=== PATIENT | female | born 1985 | race Hispanic/Latino ===

== ENCOUNTER 2016-11-23 05:05 | Inpatient (IN) | payer MEDICAID ==
[~2016-11-23] VITALS: Ht 160 cm; Wt 120.7 kg
[2016-11-23] MEDS ORDERED: PREN1TAB87 PO (05:16)
[2016-11-23] MEDS ORDERED: ACYC400T2 PO (05:18)
[2016-11-23] MEDS ORDERED: Oxytocin 10 Unit/mL Inj IV ONE ×2 (05:33→05:46)
[2016-11-23] MEDS ORDERED: Carboprost 250 mCg/mL Inj IM PRN ×2 (06:00→10:15)
[2016-11-23] MEDS ORDERED: Hemorrhage Kit, Post Partum XX ONE ×2 (06:00→10:15)
[2016-11-23] MEDS ORDERED: Lactated Ringer's 1,000 ML IV SCH ×2 (06:00→07:17)
[2016-11-23] MEDS ORDERED: Methylergonovine 0.2 mg/mL Inj IM PRN ×2 (06:00→10:15)
[2016-11-23] MEDS ORDERED: CeFAZolin Inj 2 GM in IV Premix 1 EACH IV SCH (06:00)
[2016-11-23] MEDS ORDERED: Sodium Citrate-Citric Acid 30 mL Solution PO SCH (06:00)
[2016-11-23 06:29] LABS: Mean Corpuscular Hemoglobin 28.2 pg (27.0-35.0); Mean Corpuscular Volume 89.2 fL (81-100)
[2016-11-23] MEDS ORDERED: Sodium Citrate-Citric Acid 15 mL Solution ONE (07:01)
[2016-11-23] MEDS ORDERED: Lactated Ringer's 500 ML IV PRN (07:17)
--- NOTE | 2016-11-23 07:17 | PCM.HPANE ---
Patient Data Surgeon Admitting Provider:David Perdue MD Attending Provider:David Perdue MD Primary Care Physician:Lurdes Louis MD Other Provider:Wil Ray Anesthesia Reason for Visit Term Repeat C/S TERM REPEAT C/S Ht/WT & BMI Body Mass Index Allergies Coded Allergies: No Known Allergies (Unverified Allergy, Unknown, 06/12/15) latex (Verified Allergy, Unknown, rash, 11/23/16) Diabetes History Hx Diabetes?: No Medications Reported Medications Acyclovir 400 Mg Tablet Mg PO BID Ref 0 11/23/16 Vit W-Ca,Fe,FA(<1 mg) ( Vitamins)1 Each Tablet1 Each PO DAILY 11/23/16 History Cardiovascular History: Denies:: Congestive Heart Failure Hypertension Respiratory History: Denies:: Tuberculosis Hx Surgeries?: No Hx Diabetes: No Hx Alcohol Use: Yes (occasional)Hx Substance Use: Yes (marijuana occasional) Smoking Status: Never Smoker Have You Smoked inLast 12 mo: No Stop/Bang Risk Assessment Category Category 1A: Patient has history of documented sleep apnea, and HAS NOT received any narcotic, sedative or anesthesia administration during this stay. Category 1B: Patient has history of documented sleep apnea, and HAS received any narcotic , sedative or anesthesia administration during this stay Category 2: Patient has SUSPECTED Obstructive Sleep Apnea, and HAS received any narcotic , sedative or anesthesia administration during this stay. Category 3: Patient has SUSPECTED Obstructive Sleep Apnea and HAS NOT received narcotic, sedative or anesthesia administration during this stay. Category 4: Outpatient in Procedural Areas with known sleep apnea or who screen positive for High Risk via the STOP/BANG questionnaire. Meds/Labs/Diagnostics Admission Meds Current Medications Lactated Ringer's (Lr) 1,000 ml @ 125 mls/hr Q8H IV Last administered on t 06:17; Start 11/23/16 at 06:00; Stop 11/23/16 at 13:59 Labs Test 11/23/16 05:16 11/23/16 06:10 Urine Opiates Screen Negative Urine Methadone Screen Negative Urine Barbiturates Screen Negative Urine Amphetamines Screen Negative Urine Benzodiazepines Screen Negative Urine Cocaine Metabolite Screen Negative Urine Cannabinoids Screen Negative White Blood Count 10.0th/mm3 (3.8-10.1) Red Blood Count 3.72mil/mm3 (3.90-5.20) Hemoglobin 10.5g/dL (12.0-15.6) Hematocrit 33.2% (35.0-46.0) Mean Corpuscular Volume 89.2fL (81-100) Mean Corpuscular Hemoglobin 28.2pg (27.0-35.0) Mean Corpuscular Hemoglobin Concent 31.6% (32.0-37.0) Red Cell Distribution Width 15.0% (12.3-15.4) Platelet Count 278bil/L (150-400) Plan Impression Patient chart reviewed, patient interviewed and anesthestic plan with risks, benefits, and alternatives discussed, and informed consent obtained. Pj Weaver MD Nov 23, 2016 07:17
--- NOTE | 2016-11-23 07:17 | PCM.ANEPRE ---
Anesthesia Pre-Op Review Reason for Review: BMI 46 Anesthesia Recommendations: Proceed with Procedure Additional Comments Anesthesia Pre-Op Review Reason for Review: BMI 46 Anesthesia Recommendations: Proceed with Procedure Additional Comments 31 yo urdu speaking for repeat c/s on 11/23/16, mon. with BMI 46. Has had some htn, otherwise smooth . Delivered by c/s after long labor in 2004 with initial epidural and successful spinal for c/s. Recovered well. latex allergy. Denies cardiac or pulmonary problems. no illicit drugs or alcohol. pt of tania kolb. Good airway, MP1, and can feel midline of back. Discussed sab for elective c/s and she is comfortable with this. All questions answered. Will check labs before surgery and good to proceed. Chart Reviewed by: Pj Weaver MD Chart Reviewed by: Pj Dietrich MD, MD Nov 23, 2016 07:17
[2016-11-23] MEDS ORDERED: HYDROmorphone 1 mg/mL Inj IVPUSH PRN (07:20)
[2016-11-23] MEDS ORDERED: EPHEDrine Sulfate 50 mg/mL Inj IVPUSH PRN (07:20)
[2016-11-23] MEDS ORDERED: Dexamethasone 4 mg/mL Inj IVPUSH PRN (07:20)
[2016-11-23] MEDS ORDERED: fentaNYL-PF 50 mCg/mL 2 mL Inj IVPUSH PRN (07:20)
[2016-11-23] MEDS ORDERED: Phenylephrine 10,000 mCg/mL Inj IVPUSH PRN (07:20)
[2016-11-23] MEDS ORDERED: MetoCLOpramide 5 mg/mL 2 mL Inj IVPUSH PRN (07:20)
[2016-11-23] MEDS ORDERED: Ondansetron 2 mg/mL 2 mL Inj IVPUSH PRN (07:20)
[2016-11-23] MEDS ORDERED: Morphine PF 1 mg/mL 10 mL Inj ONE (08:58)
[2016-11-23] MEDS ORDERED: fentaNYL-PF 50 mCg/mL 2 mL Inj ONE (08:58)
[2016-11-23] MEDS ORDERED: Phenylephrine/NS 100 mCg/mL 10 mL Syringe IVPUSH ONE (08:59)
[2016-11-23] MEDS ORDERED: Ondansetron 2 mg/mL 2 mL Inj ONE (08:59)
[2016-11-23] MEDS: Oxytocin 10 Unit/mL Inj IM PRN ×2 (10:06→10:07)
[2016-11-23] MEDS ORDERED: Oxytocin 10 Unit/mL Inj IM PRN (10:15)
[2016-11-23] MEDS ORDERED: Oxytocin 30 Units/500 mL LR 30 UNITS in IV Premix 1 EACH IV PRN (10:15)
[2016-11-23] MEDS ORDERED: Sodium Chloride LOK Flush 10 mL Syringe IVFLUSH PRN (10:15)
[2016-11-23] MEDS ORDERED: hydrOXYzine Pamoate 25 mg Capsule PO PRN (10:15)
[2016-11-23] MEDS ORDERED: LANOlin HPA 7 Gm Ointment TOPICAL PRN (10:15)
--- NOTE | 2016-11-23 10:45 | OP ---
[address] [address] OPERATIVE REPORT PATIENT: NEREYDA REDD : 1985 MR#: [id number] ADMIT: 11/23/2016 JOB ID: [id number] DATE OF SURGERY: 11/23/2016 PROCEDURE: Repeat low transverse delivery. PREOPERATIVE DIAGNOSIS(ES): 1. Intrauterine at 39 weeks. 2. History of one prior delivery. POSTOPERATIVE DIAGNOSIS(ES): 1. Intrauterine at 39 weeks. 2. History of one prior delivery. SURGEON: David Perdue MD MANAGER AGRICULTURE: Lurdes Louis MD ANESTHESIA: Pj Weaver MD, spinal. ESTIMATED BLOOD LOSS: 700 mL. ESTIMATED URINE OUTPUT: 300 mL. FLUID: 1 L of Ringer lactate. COMPLICATIONS: None. PROCEDURE: The patient was brought to the operating room, where she underwent spinal anesthesia without difficulty. The patient was placed in a dorsal supine position with a leftward tilt. She was prepped and draped in the usual surgical fashion. Time-out was performed verifying correct patient, correct procedure. She received preoperative antibiotics. The surgery was challenging because of the patient's morbid obesity, prior , adhesions between the omentum and anterior abdominal wall. Additional assistance was necessary for good exposure, retraction, help with lyses of adhesions and delivery of the . Pfannenstiel skin incision was made with a scalpel and carried down to the underlying layer of rectus muscle fascia using Bovie. The rectus muscle fascia was incised in the midline with the Bovie and the incision was then laterally extended. The lower aspect of the incision was grasped with two José Miguel clamps and the rectus muscle fascia was from the underlying rectus muscle using Acuña scissors. In a similar fashion, the upper aspect of the incision was grasped with two José Miguel clamps, and rectus muscle fascia was from the underlying rectus muscle using the scalpel, Acuña scissors and moist laparotomy sponge. The rectus muscles were in the midline. The patient had some adhesions between the anterior abdominal wall and omentum that were lysed using Bovie. The peritoneum was identified, tented up with two Bekah clamps, and entered sharply with the Metzenbaum scissors. The peritoneal incision was then laterally extended. The lysis of adhesions was provided down toward the lower uterine segment. The bladder blade was introduced. Using scalpel, lower segment transverse uterine incision was made and extended laterally with the bandage scissors. The infant was identified being in a cephalic presentation. The bladder blade was removed and male was atraumatically delivered with scores 9 at one minute and 9 at five minutes. The mouth and nostrils were suctioned. The delayed cord clamping was done allowing 60 seconds. The cord was clamped and cut and the was handed off to the waiting manager ct. The cord blood was sent. The placenta was removed. The uterus was exteriorized and cleared from all the blood clots and debris using a dry laparotomy sponge. The uterine incision was repaired with two layers of 0 Monocryl. The pelvis was irrigated with warm normal saline and the uterus was replaced. The peritoneum was reapproximated using 2-0 Vicryl suture. Interrupted sutures were placed on the rectus muscles for reapproximation as well using 2-0 Vicryl. The fascia was closed with 0-Vicryl. Subcuticular tissue was reapproximated with four interrupted 3-0 Vicryl sutures. The skin was reapproximated with sofia. Dermabond glue was applied. Hemostatic dressing was applied. The patient tolerated the procedure well and was transferred to the recovery room in a stable condition.
[2016-11-23] MEDS: Acetaminophen IV 1,000 MG in IV Premix 1 EACH IV PRN ×2 (11:03→20:04)
[2016-11-23] MEDS: Lactated Ringer's 1,000 ML IV SCH ×2 (11:03→22:10)
[2016-11-23] MEDS: oxyCODONE-Acetamin 5-325 mg Tablet PO PRN ×2 (15:32→22:10)
[2016-11-24] MEDS: oxyCODONE-Acetamin 5-325 mg Tablet PO PRN ×5 (04:27→22:16)
[2016-11-24 06:41] LABS: Mean Corpuscular Hemoglobin 28.2 pg (27.0-35.0)
--- NOTE | 2016-11-24 09:47 | PCM.PNOBPP ---
Subjective Date of Service Nov 24, 2016 Post : Repeat Ceserean Delivery Subjective 31 female G3 P(2now) s/p repeat cesarian delivery. Mother recovering well. Ambulating independently, voiding urine without difficulty. Pain is well controlled with oral pain meds. Wound site is mildly tender. No fever/chills, VASQUEZ , N/V, CP, SOB. Lochia: Normal Pain Management: PO pain meds Gastrointestinal: Good Appetite, No N/V Labs Antibody screen - negative, PAP test - negative, Varicella - immune, Rubella - immune, RPR - non reactive, HBsAg - negative, HIV - negative, Chlamydia/ Gonorrhea - negative, GBS - negative Group B Strep Results: Negative Rubella: Immune Blood Type: A RH Type: Positive Labs Laboratory Tests 11/24/16 06:10: White Blood Count 10.4, Red Blood Count 3.12, Hemoglobin 8.8, Hematocrit 28.4, Mean Corpuscular Volume 91.0, Mean Corpuscular Hemoglobin 28.2, Mean Corpuscular Hemoglobin Concent 31.0, Red Cell Distribution Width 14.9, Platelet Count 224 Exam Vital Signs Vital Signs BP 141/89, HR 104, RR 16, temp 36.5, Vital Signs: VS reviewed, stable Exam Abdomen: Uterus is (difficult to palpate fundal height secondary to body habititus. ), Abdomen soft, Abdomen appropriately tender Extremities: No edema Lungs: Clear to Auscultation, Normal Air Movement Heart: Exam Unremarkable, Regular Rate/Rhythm General: Alert, Oriented X3, Cooperative OB Post Assessment/Plan Assessment 31 female s/p repeat cesarian delivery without complication though surgery was reported to be difficult secondary to body habitus. Mother is recovering well. Problems: (1) delivery delivered Plan: Continue supportive care, anticipate discharge tomorrow Status: Resolved ICD Code: O82 (2) Previous , delivered, current hospitalization Plan: Continue supportive care, anticipate discharge home tomorrow. Status: Resolved ICD Code: O34.21 Pain Evaluation: Adequate Pain Control Attending Statement Patient was seen and examined. She is doing well this AM, POD#1 s/p RLTCS. May catheter was removed and she is ambulating and voiding without difficulty. Lochia is minimal. Incision is clean/dry/intact and pain is well controlled. She is eating breakfast and denies nausea or vomiting. No flatus yet. Blood pressures reviewed and within normal limits with mild elevations not requiring intervention. She does have anemia noted on CBC and iron and colace are ordered. Continue routine postoperative care, plan to remove dressing 24 hr s/p delivery. Anticipate discharge home on POD#2 ELVIE FRIED DO Nov 24, 2016 07:45 Chaparrita Salazar MD Nov 25, 2016 13:24
[2016-11-24] MEDS: Lactated Ringer's 1,000 ML IV SCH ×2 (10:11→16:44)
[2016-11-24] MEDS: Ascorbic Acid 500 mg Tablet PO SCH (19:53)
[2016-11-25] MEDS: oxyCODONE-Acetamin 5-325 mg Tablet PO PRN ×3 (02:20→12:32)
[2016-11-25] MEDS ORDERED: FERR-74 PO (07:00)
[2016-11-25] MEDS ORDERED: Ascorbic Acid PO (07:00)
[2016-11-25] MEDS ORDERED: IBUP800T28 PO (07:00)
[2016-11-25] MEDS ORDERED: OXYC5TAB72 PO (07:00)
[2016-11-25] MEDS ORDERED: DOCU-41 PO (07:00)
[2016-11-25] MEDS ORDERED: OXYC1TAB24 PO (07:34)
[2016-11-25 08:00] LABS: BASOPHILS % (AUTO) 0.2 % (0-3); EOSINOPHILS % (AUTO) 1.5 % (0-5); MONOCYTES % (AUTO) 6.6 % (4-12); Mean Corpuscular Hemoglobin 29.2 pg (27.0-35.0); Mean Corpuscular Volume 90.5 fL (81-100); Platelet Count 244 bil/L (150-400)
[2016-11-25] MEDS: Ascorbic Acid 500 mg Tablet PO SCH (08:23)
[2016-11-25] MEDS: Lactated Ringer's 1,000 ML IV SCH (08:49)
--- NOTE | 2016-11-25 08:56 | PCM.PNOBPP ---
Subjective Date of Service Nov 25, 2016 Post : Repeat Ceserean Delivery Subjective 31 female G3 P(2now) s/p repeat cesarian delivery. Mother recovering well. Ambulating independently, showering in room, voiding urine without difficulty. Pain is well controlled with oral pain meds. Wound site is mildly tender. No fever/chills, VASQUEZ, N/V, CP, SOB. Lochia: Normal Pain Management: PO pain meds Gastrointestinal: Good Appetite, No N/V Postop Activity: Ambulating Independently Group B Strep Results: Negative Rubella: Immune Blood Type: A RH Type: Positive Labs Laboratory Tests 11/24/16 06:10: White Blood Count 10.4, Red Blood Count 3.12, Hemoglobin 8.8, Hematocrit 28.4, Mean Corpuscular Volume 91.0, Mean Corpuscular Hemoglobin 28.2, Mean Corpuscular Hemoglobin Concent 31.0, Red Cell Distribution Width 14.9, Platelet Count 224 Exam Vital Signs Vital Signs BP 122/63, HR 94, RR 16, temp 36.7 Vital Signs: VS reviewed, stable Exam Abdomen: Uterus is (1 finger bradth below umbilicus. Difficult to palpate secondary to body habitus), Abdomen appropriately tender (Wound site shows no erythema, swelling. Bandages intact.) Extremities: No edema Lungs: Clear to Auscultation, Normal Air Movement Heart: Exam Unremarkable, Regular Rate/Rhythm General: Alert, Oriented X3, Cooperative, No Acute Distress OB Post Assessment/Plan Problems: (1) delivery delivered Plan: Continue supportive care, discharge to [facility] status today Status: Resolved ICD Code: O82 (2) Previous , delivered, current hospitalization Plan: Continue supportive care, discharge home today. Status: Resolved ICD Code: O34.21 Pain Evaluation: Adequate Pain Control Attending Statement The patient was seen and examined together with Dr. Oakes on 11/25/2016 and I agree with the history, exam and plan as outlined in the note above. Incision is CDI and sofia in place. Desires discharge. Discharge instructions reviewed in detail. Will go to clinic for staple removal next Monday. Will see Dr. Perdue for postop in 2 weeks. Is unsure what she would like to do for contraception. Briefly counseled. Plans to discuss further with Dr. Louis. / MD FARIHA Cormier GILES A DO Nov 25, 2016 06:19 Mono Wang MD Nov 25, 2016 10:48
--- NOTE | 2016-11-25 09:00 | PCM.DC.OB ---
Obstetrical Discharge Summary Date of Service Nov 25, 2016 Date of hospital admission Nov 23, 2016 at 05:05 Date of Discharge: Nov 25, 2016 Providers Admitting Physician: David Perdue MD Primary Care Physician: Lurdes Louis MD Attending Physician: David Perdue MD Problems: (1) delivery delivered Plan: Pt tolerated procedure well, recovering well. Discharge to [facility] status in stable condition Status: Resolved ICD Code: O82 (2) Previous , delivered, current hospitalization Plan: Resolved, pt tolerated procedure well with no complications Status: Resolved ICD Code: O34.21 Brief History and Physical: 31 year old female presented to the [facility] on 11/23/2016 for scheduled cesarian. Pt has a pertinent past medical history of prior cesarian and BMI of 47. has been complicated by late entry into care. Pt is GBS negative, Blood type is A positive all other labs are unremarkable. BP 141/89, HR 104, RR 16, temp 36.5, Abdomen: Uterus is (difficult to palpate fundal height secondary to body habitus. Abdomen soft, Abdomen appropriately tender. Wound site shows no erythema, swelling, discharge of fluid. Bandages intact. Extremities: No edema Lungs: Clear to Auscultation, Normal Air Movement Heart: Exam Unremarkable, Regular Rate/Rhythm General: Alert, Oriented X3, Cooperative Hospital Course: 31 female G3 P(2now) arrived to [facility] at scheduled time for elective cesarian. Pt was given anathesia without difficulty. Surgery was reported to be challenging secondary to body habitus and adhesions from prior cesarian. A healthy male was delivered weighing 3547 grams. Mother and baby both tolerated the surgery well. Mother recovered well in hospital room. Able to ambulate independently, void urine without difficulty with sufficient pain management with oral pain medications. Pt did have some elevated blood pressure readings during her stay, these were mild and a symptomatic. ([Ascorbic Acid]) 500 MG TABLET 500 MG PO BID Prescribed by: ELVIE OAKES DO Acyclovir (Acyclovir) 400 Mg Tablet MG PO BID (Reported) Docusate Sodium (Colace) 100 Mg Capsule 100 MG PO BID PRN PRN For Constipation Prescribed by: ELVIE OAKES DO Ferrous Sulfate (Feosol) 325 Mg Tablet 325 MG PO BIDWM Prescribed by: ELVIE OAKES DO Ibuprofen (Ibuprofen) 800 Mg Tablet 800 MG PO Q6H PRN PRN For Pain Prescribed by: ELVIE OAKES DO Vit W-Ca,Fe,FA(<1 mg) ( Vitamins) 1 Each Tablet 1 EACH PO DAILY (Reported) Last Taken: Unknown Dose on 10/23/16 oxyCODONE-Acetaminophen 5-325 mg ( oxyCODONE-Acetaminophen 5-325 mg) 1 Each Tablet 1-2 TAB PO Q4H PRN PRN For Pain Prescribed by: ELVIE OAKES DO Disposition Discharge to [facility] in stable condition. Discharge Diet: Low fat, Low Sodium, Heart Healthy Discharge Activity-General: Pelvic Rest for 6 weeks, Try not to overdue, Be up and about, Balance rest and activity, Activity as pain allows, Activity as energy allows Patient instructions Continue to take your vitamin Please take the iron and vitamin c together Do not take more pain medication (Percocet) than is necessary -- less is better. Percocet pills have Tylenol (acetaminophen) in them at 325mg per pill. Do not take Tylenol in addition to your pain medication but should take one or the other. Both iron and Percocet can give you constipation so you have also been given a prescription for docusate to keep you regular. Be sure to follow up for staple removal on Monday in the [facility] or at Dr. Louis's office (for a nurse visit and staple removal), and in [address] Perdue and then again in 6 weeks at [facility]. Pelvic rest for 6 weeks (nothing per vagina including intercourse, tampons) If you have a fever greater than 100.4, please call [facility]. There is always someone research professional to talk to. If you have an increase in bleeding, call [facility]. If you have a lot of bleeding suddenly, especially if you have symptoms of dizziness & weakness with it, get emergency help. When you see [facility] in two weeks, you will be informed of the results of all the labs. If you start experiencing extreme depression, especially if you feel that you are a danger to yourself or your family, seek emergency help. You have been through a lot -- BE SURE TO TAKE CARE OF YOURSELF. Attending Statement: The patient was seen and examined together with Dr. Oakes on 11/25/2016 and I agree with the history, exam and plan as outlined in the note above. / MD FARIHA Cormier GILES A DO Nov 25, 2016 06:25 Mono Wang MD Nov 25, 2016 10:50
--- NOTE | 2016-11-25 09:02 | PCM.DIOB ---
ELVIE FRIED DO 11/25/16 0718: Obstetrical Disch Instruction Date of Service: Nov 25, 2016 Dates of Hospitalization Date of Hospital Admission Nov 23, 2016 at 05:05 Providers Admitting Physician: David Perdue MD Primary Care Physician: Lurdes Louis MD Attending Physician: David Perdue MD Discharge Diagnosis Problems: (1) delivery delivered Plan: Pt recovering well, discharge home in stable condition Status: Resolved ICD Code: O82 (2) Previous , delivered, current hospitalization Plan: Mother doing well. Discharge home in stable condition Status: Resolved ICD Code: O34.21 Diet Discharge Diet: Low fat, Low Sodium, Heart Healthy Activity Discharge Activity-General: Pelvic Rest for 6 weeks, Try not to overdue, Be up and about, Balance rest and activity, Activity as pain allows, Activity as energy allows, No lifting >15 pounds for 2 weeks Dressing and Incisional Care Dressing Care: Keep dressing clean, dry & intact Hygiene: May shower, NO bathtub, hot tub or whirlpool Additional Instructions Discharge Instructions Continue to take your vitamin Please take the iron and vitamin c together Do not take more pain medication (Percocet) than is necessary -- less is better. Percocet pills have Tylenol (acetaminophen) in them at 325mg per pill. Do not take Tylenol in addition to your pain medication but should take one or the other. Both iron and Percocet can give you constipation so you have also been given a prescription for docusate to keep you regular. Be sure to follow up for staple removal on Monday in the [facility] or at Dr. Louis's office (for a nurse visit and staple removal), and in [address] Perdue and then again in 6 weeks at [facility]. Pelvic rest for 6 weeks (nothing per vagina including intercourse, tampons) If you have a fever greater than 100.4, please call [facility]. There is always someone diamond powder mixer to talk to. If you have an increase in bleeding, call [facility]. If you have a lot of bleeding suddenly, especially if you have symptoms of dizziness & weakness with it, get emergency help. When you see [facility] in two weeks, you will be informed of the results of all the labs. If you start experiencing extreme depression, especially if you feel that you are a danger to yourself or your family, seek emergency help. You have been through a lot -- BE SURE TO TAKE CARE OF YOURSELF. You did have some elevated blood pressure readings during your stay. You have not been diagnosed with hypertension in the past and this may be induced. Please monitor your blood pressure at home and record the readings. If you do not have a blood pressure monitor at home you can purchase one at a pharmacy. If this is not an option there are blood pressure machines located in many pharmacies and drug stores that you may use. Please do so and keep a record of your results, then give them to your doctor at your next visit. If you develop any severe headaches or Visual changes, chest pain or palpitations please see your doctor or go to urgent care/ emergency department. Follow Up Plan Follow Up Plan Pt will follow up next week in [facility] for staple removal. Then again in 2 weeks and again in 6 weeks. Follow-up appointment: Days (3 days in [facility]) Call your provider for: Fever or Chills, Shortness of breath, Heavy vaginal bleeding, Heavy bleeding, Epigastric pain, Excessive constipation, Vaginal discomfort, Red painful breasts Moon Wang MD 11/25/16 1049: ELVIE FRIED DO Nov 25, 2016 07:18 Mono Wang MD Nov 25, 2016 10:49
[2016-11-25 11:39] VITALS: BP 131/69; PULSE 88; RESP 16
== END 2016-11-25 13:30 | disposition home or self-care (01) | DRG 540 ==
LOC: FBC 05:05 → EDSTATUS 07:15
PROVIDERS: ADMIT Legal Medicine; ATTEND Legal Medicine
PROC: 10D00Z1 Extraction of Products of Conception, Low, Open Approach (ICD-10-PCS; principal; 2016-11-23 07:15)
DX: O34.211 Maternal care for low transverse scar from previous cesarean delivery (principal); Z68.42 Body mass index [BMI] 45.0-49.9, adult; Z3A.39 39 weeks gestation of pregnancy; Z37.0 Single live birth; O99.214 Obesity complicating childbirth; E66.01 Morbid (severe) obesity due to excess calories; O99.62 Diseases of the digestive system complicating childbirth; K66.0 Peritoneal adhesions (postprocedural) (postinfection); O69.1XX0 Labor and delivery complicated by cord around neck, with compression, not applicable or unspecified